=== PATIENT | male | born 1965 | race Caucasian/White ===

== ENCOUNTER 2016-11-02 06:55 | Day surgery (SDC) | payer BC ==
[2016-11-02] MEDS ORDERED: Lidocaine 1% 30 ML SDV ONE (07:10)
--- NOTE | 2016-11-02 07:14 | PCM.SN ---
- Free Text/Narrative Note: Meds and allergies reviewed w chart review. No complications w previous anesthetics. NPO > 8 hrs. Pos smoker, neg GERD. Hx Hyperlipidemia. Mallampati 1. Lungs CTAB, heart RRR. Risks benefits and alternatives of anesthesia explained to Pt. Pt denies questions or concerns. Plan MAC
[2016-11-02] MEDS ORDERED: Lactated Ringers 1,000 ML IV SCH (07:30)
[2016-11-02] MEDS ORDERED: Simethicone Drops 40 MG/0.6 ML 30 ML Bottle ONE (07:59)
[2016-11-02] MEDS ORDERED: Lidocaine 1% 30 ML SDV INJECT ONE ×2 (08:37→13:20)
[2016-11-02] MEDS ORDERED: Silver Nitrate Applicator Each ONE (08:38)
[2016-11-02] MEDS ORDERED: Silver Nitrate Applicator Each TOP ONE (08:41)
--- NOTE | 2016-11-02 09:26 | PCM.SN ---
- Free Text/Narrative Note: Post op. Pt alert and oriented. VSS. Pt denies pain or nausea. Taking PO well. No anesthesia concerns noted.
--- NOTE | 2016-11-02 10:47 | HP ---
CHIEF COMPLAINT: Hidradenitis and has no history of having a colonoscopy. HISTORY OF PRESENT ILLNESS: Mr. Clemente Brothers is a 51-year-old male, who I saw last month with active hidradenitis. He is 51 years old and has never had any colonoscopy, and of note, he has also an area of concern around his perianal area. I discussed with the patient that for completeness, we may make sure that he does not have any source of inflammatory bowel disease before we continue on our road to try to treat his chronic hidradenitis. PAST MEDICAL HISTORY: Since I last saw him, he states he has decreased the number of cigarettes and he has had no additional medications. ALLERGIES: None. REVIEW OF SYSTEMS: He states he has been feeling fine and has had no fevers or chills. PHYSICAL EXAMINATION: General: He is alert and oriented. Lungs: Clear. Heart: Rhythm is regular. Abdomen: Soft. Extremities: Calves without tenderness. IMPRESSION AND PLAN: 1. In need of a colonoscopy. I clearly discussed the risks and benefits including bleeding, infection, heart attack, , injury to structures not intended, especially perforation. I also explained to him that we need to get all the way to the right side of the colon for completeness. He understands this. If we find any polyps or pathology, we will either biopsy or remove the polyps. 2. As far as the perianal abscess. I explained to him too that we will get a good exam under anesthesia, and perhaps we might need to do some biopsies of this area. Again, the risks of that are the same as far as bleeding, wound not healing, but at least we will may assure that like I said I want to get a good look at this area. He signed a separate consent and agrees to proceed. I did also met with his and they understand clearly. Again, we stressed that this is going to be a chronic problem and certainly smoking cessation would be in his benefit. [facility] /[id number]
[2016-11-02 10:52] VITALS: BP 112/80
--- NOTE | 2016-11-02 12:59 | OR ---
DATE: 11/02/2016 PREOPERATIVE DIAGNOSIS: Significant perianal questionable hidradenitis. POSTOPERATIVE DIAGNOSES: 1. Single small polyp in descending colon-polypectomy done coldly. 2. Punch biopsies x2 of perianal hidradenitis. PROCEDURE: Colonoscopy to rule out inflammatory bowel disease. ANESTHESIA: IV sedation and 1% lidocaine to the punch biopsy. ESTIMATED BLOOD LOSS: Less than 1 mL. BRIEF HISTORY: Clemente Brothers is a 51-year-old male, who has been plagued, but we think it is hidradenitis. He has had multiple drainages in the perianal area, but I do not see that he has ever had a formal colonoscopy to rule out any sort of inflammatory bowel disease. I had an opportunity preoperatively to discuss the risks of the procedure with the patient and he agreed to proceed. DESCRIPTION OF PROCEDURE: The patient was taken to the operating room. IV sedation was begun, and he was placed on his left side down. A time-out was performed. On inspection of the perianal area, this actually looks better than it did a month ago when I saw it. Mostly on the left side, there was an area of thickening where you could see there was just a little tiny drop of purulence. There was no marked induration on the right side, just a scarring from all the previous I and D. On rectal exam, I could feel that his prostate felt normal and there was no mass. I then was able to begin the colonoscopy. I was able to advance the scope all the way to the ileocecal valve and visualize this nicely. I could also see the appendiceal orifice. The bowel prep was good and there was no lesions in the ascending or the cecum or the transverse colon. There was no lesions until I saw the tiny polyp probably about a 0.25 polyp that I was able to grasp and removed with the cold biopsy forceps. I then continued to the sigmoid. I was able to retroflex the scope and clearly there were no signs of inflammatory bowel disease. There was no inflammation, no ulcerations throughout the entire colon. Then I went ahead and changed gloves. I prepped the area on the left side of the patient's buttocks with Betadine. Two punch biopsies were done in the area of the most area that was most thickened. These were sent in a separate container. I simply then did take a sterile Q-tip, there was no tracking, and nothing to suggest that this pertained to the anal area. I went ahead then and cultured the area and then simply used a little silver nitrate stick for local hemostasis. This was successfully done. A 4 x 4 was placed. He tolerated the procedure well. [facility] /[id number]
[2016-11-02] MEDS ORDERED: Simethicone Drops 40 MG/0.6 ML 30 ML Bottle PO ONE (13:20)
[2016-11-02] MEDS ORDERED: Propofol 200 MG/20 ML SDV IV ONE (14:49)
[2016-11-02] MEDS ORDERED: fentaNYL 100 MCG/2 ML SDV IV ONE (14:49)
[2016-11-02] MEDS ORDERED: Midazolam 1 MG/ML 2 ML SDV IV ONE (14:49)
== END 2016-11-02 10:35 | disposition home or self-care (01) ==
LOC: DL.ENDO 06:55
PROVIDERS: ATTEND Surgery
DX: K63.5 Polyp of colon (principal); K62.89 Other specified diseases of anus and rectum; E78.5 Hyperlipidemia, unspecified; Z88.0 Allergy status to penicillin; F17.210 Nicotine dependence, cigarettes, uncomplicated
CPT/HCPCS: 45380; 87070; 87075; A9270; J2250; J2704; J3010; J7120